=== PATIENT | female | born 1940 | race Caucasian/White ===

== ENCOUNTER 2020-09-28 14:40 | Outpatient (REF) | payer MEDICARE, OTHER, SELFPAY ==
--- NOTE | 2020-09-28 | XR_ITS ---
EXAMINATION: XR LUMBAR SPINE XR RIGHT HIP CLINICAL INFORMATION: Low back pain and right hip pain. COMPARISON: Right hip 06/12/2020. TECHNIQUE: 5 views of lumbar spine and 2 views of right hip. FINDINGS: LUMBAR SPINE: There is normal lumbar lordosis. The vertebral heights, alignment and disc heights are normal. There is no pars defect or listhesis. There is bilateral L4-L5 facet joint arthropathy. No lytic process. The paravertebral soft tissues are normal. RIGHT HIP: There is an intramedullary femoral kelle and a hip nail for an old healed right hip intertrochanteric fracture. XR/XR lumbar spine 4V min IMPRESSION: No acute fracture or dislocation of lumbar spine. There is bilateral L4-L5 facet joint arthropathy. No lytic process. Stabilized right hip fracture with an intramedullary femoral kelle and a hip nail. The fracture is in satisfactory alignment with healing callus visualized.
--- NOTE | 2020-09-28 | XR_ITS ---
EXAMINATION: XR LUMBAR SPINE XR RIGHT HIP CLINICAL INFORMATION: Low back pain and right hip pain. COMPARISON: Right hip 06/12/2020. TECHNIQUE: 5 views of lumbar spine and 2 views of right hip. FINDINGS: LUMBAR SPINE: There is normal lumbar lordosis. The vertebral heights, alignment and disc heights are normal. There is no pars defect or listhesis. There is bilateral L4-L5 facet joint arthropathy. No lytic process. The paravertebral soft tissues are normal. RIGHT HIP: There is an intramedullary femoral kelle and a hip nail for an old healed right hip intertrochanteric fracture. XR/XR hip RT min 2V IMPRESSION: No acute fracture or dislocation of lumbar spine. There is bilateral L4-L5 facet joint arthropathy. No lytic process. Stabilized right hip fracture with an intramedullary femoral kelle and a hip nail. The fracture is in satisfactory alignment with healing callus visualized.
--- NOTE | 2020-09-28 14:54 | US_ITS ---
EXAMINATION: US VENOUS ULTRASOUND WITH DOPPLER LOWER EXTREMITY, RIGHT CLINICAL INFORMATION: Right lower extremity edema. Hip pain. COMPARISON: Radiographs right hip 08/15/2020 TECHNIQUE: Ultrasound of the deep veins is performed from the hip to the calf with compression sonography and color and pulse Doppler assessment. Spectral analysis with color-flow imaging is performed. FINDINGS: There is normal venous compression and respiratory variation and augmented flow. The visualized common femoral vein, superficial femoral vein, profunda femoral vein, popliteal vein, and the trifurcation region shows no evidence of deep venous thrombosis. No popliteal fossa cyst demonstrated. US/US venous duplex LE RT IMPRESSION: No DVT demonstrated in the right lower extremity.
== END 2020-09-28 14:41 | disposition home or self-care (01) ==
LOC: HO.HMGCX 14:40
PROVIDERS: PCP Internal Medicine; Visit Provider Internal Medicine
DX: M79.89 Other specified soft tissue disorders (principal); M25.551 Pain in right hip; M54.5 Low back pain; S42.211D Unspecified displaced fracture of surgical neck of right humerus, subsequent encounter for fracture with routine healing
CPT/HCPCS: 72110; 73502; 93971

== ENCOUNTER → 2020-10-10 13:04 | Outpatient (BNVA) | payer MEDICARE, OTHER, SELFPAY | PROVIDERS: PCP Internal Medicine; Referring Provider Internal Medicine; Visit Provider Orthopaedic Surgery | DX: M25.551 Pain in right hip (principal); M53.3 Sacrococcygeal disorders, not elsewhere classified; S72.141S Displaced intertrochanteric fracture of right femur, sequela | CPT/HCPCS: 99212 ==

== ENCOUNTER → 2021-01-09 11:19 | Outpatient (BNVA) | payer MEDICARE, MEDICAID, OTHER, SELFPAY | PROVIDERS: PCP Internal Medicine; Visit Provider Nurse Practitioner Family | DX: I25.10 Atherosclerotic heart disease of native coronary artery without angina pectoris (principal); I25.5 Ischemic cardiomyopathy; I50.20 Unspecified systolic (congestive) heart failure; Z98.890 Other specified postprocedural states; E78.5 Hyperlipidemia, unspecified; I10 Essential (primary) hypertension; E11.9 Type 2 diabetes mellitus without complications | CPT/HCPCS: Q3014 ==

== ENCOUNTER → 2021-02-15 14:05 | Outpatient (REF) | payer MEDICARE, OTHER, SELFPAY ==
--- NOTE | 2021-02-15 14:04 | CA_ITS ---
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 Moderate to severe LV systolic dysfunction with LVEF of 30 35% with impaired relaxation filling pattern 2. Normal cardiac valvular Doppler 3. Normal RV systolic pressure 4. No pericardial effusion Findings Left Ventricle Normal left ventricular cavity size. There is normal left ventricular wall thickness. The left ventricular systolic function is moderate to severely decreased. The visually estimated ejection fraction is between 30-35%. Spectral Doppler is indicative of an impaired relaxation filling pattern. E/E prime ratio is between 8 and 15 consistent with indeterminate filling pressures. Wall Motion Rest Echo Findings The apex, apical anterior, mid anterior, and mid anteroseptal segments are hypokinetic. The inferoseptal wall, the mid inferior, and basal inferolateral segments are akinetic. The basal inferior segment is dyskinetic. All other scored wall segments showed normal motion. Right Ventricle Normal right ventricular cavity size and systolic function. Atria Both atria are normal in size. There is no evidence of interatrial shunt. Aortic Valve There is mild calcification of the aortic valve. There is no aortic valve stenosis. There is no aortic valve regurgitation. Mitral Valve There is mild anterior and posterior mitral leaflet thickening. There is trace mitral valve regurgitation. There is no mitral valve stenosis. Pulmonic Valve The pulmonic valve was not well visualized. Tricuspid Valve Likely normal tricuspid valve structure and function. There is trace tricuspid valve regurgitation. The right ventricular systolic pressure is normal. The right ventricular systolic pressure is 26 mmHg. Normal right atrial pressure. There is no evidence of pulmonary hypertension. Great Vessels All visible segments of the aorta are normal in size. The pulmonary artery was not well visualized. Venous The inferior vena cava is normal in size and collapses greater than 50% with inspiration. Pericardium/Pleural There is no evidence of pericardial effusion. Prior Study Comparison Changes noted compared to prior study dated: 10/08/2019. LV systolic function appears improved on this study Measurements 2D Linear Measurements IVSd: 1.10 0.6-0.9/0.6-1.0 cm LVIDd: 5.27 3.9-5.3/4.2-5.9 cm LVIDd Index: 2.96 2.4-3.2/2.2-3.1 cm/m2 LVIDs: 4.16 2.0-3.6 cm LVPWd: 1.10 0.7-1.1 cm Ao Root: 3.30 2.1-3.5 cm LA Diam: 3.40 2.7-3.8/3.0-4.0 cm LAIDs Index: 1.91 1.5-2.3 cm/m2 LV Mass: 281.29 67-162/88-224 g LV Mass Index: 158.03 43-95/49-115 g/m2 LVOT Diam: 2.20 3.0+(-)1.3 cm 2D Systolic Function EF 4C: 35.40 >55% EF 2C: 45.50 >55% Mitral Valve MV Pk E: 0.64 MV PK A: 1.00 MV Decel Time: 279.00 E/A: 0.60 E'Lateral: 7.94 E'Medial: 4.13 E/E' Med: 15.40 E/E' Lat: 8.00 PHT: 82.00 MVA PHT: 2.68 Decel Hood: 2.28 Aortic Valve AoV Pk Isidoro: 1.47 AoV Mn Isidoro: 1.03 AoV VTI: 0.36 AoV Pk Grad: 9.00 Aov Mn Grad: 5.00 JENN Cont.VTI: 1.93 LVOT LVOT Pk Isidoro: 0.79 LVOT Mn Isidoro: 0.50 LVOT VTI: 0.18 LVOT Pk Grad: 3.00 LVOT Mn Grad: 1.00 LVOT Diam: 2.20 LVOT Area: 3.80 Diastolic Function MV Pk E: 0.64 MV Pk A: 1.00 E/A: 0.60 E'Medial: 4.13 E/E' Med: 15.40 E' Laterial: 7.94 E/E' Lat: 8.00 Tricuspid Valve TR Pk Isidoro: 2.39 TR Pk Grad: 23.00 RA Press: 3.00 RVSP: 26.00 Great Vessels Aorta Ao Root-2D: 3.30 2.0-3.7 cm Ao Asc: 3.20 2.1-3.4 cm Ao Arch: 2.50 Updated in Other Vendor System with Status of Final Arron Snyder MD electronically signed on 02/16/2021 3:03:35 PM with status of Final
[2021-02-15 14:46] LABS: MANUAL DIFF FLAG NO
[2021-02-15 14:50] LABS: Basophils Percent Auto 0.5 % (0-2); Eosinophils Absolute Auto 0.2 X10*3/uL (0.0-0.4); Hematocrit 31.1 % (37-47); Hemoglobin 9.6 g/dl (12.0-16.0); Imm Gran Abs Auto 0.03 X10*3/uL (0.00-0.03); Imm Gran Pct Auto 0.5 % (0.0-0.4); Lymphocytes Percent Auto 34.8 % (20-40); Mean Corpuscular HGB Conc 30.9 g/dl (31.0-35.0); Mean Corpuscular Hemoglobin 31.9 pg (27.0-33.0); Mean Corpuscular Volume 103.3 fL (80-98); Mean Platelet Volume 10.1 fL (9.4-12.3); Monocytes Absolute Auto 0.4 X10*3/uL (0.1-1.2); Monocytes Percent Auto 6.3 % (2-11); Neutrophils Absolute Auto 3.1 X10*3/uL (2.0-8.3); Neutrophils Percent Auto 53.9 % (45-73); Platelet Count 265 X10*3/uL (160-400); Red Blood Count 3.01 X10*6/uL (4.20-5.50); Red Cell Distribution Width 13.4 % (11.0-16.0); White Blood Count 5.7 X10*3/uL (4.8-10.8)
[2021-02-15 15:20] LABS: Alanine Aminotransferase 16 U/L (0-31); Albumin Level 3.4 g/dL (3.5-5.0); Alkaline Phosphatase 105 U/L (39-117); Anion Gap 12 (12-20); Aspartate Amino Transferase 16 U/L (5-31); Bilirubin Total 0.4 mg/dL (0.0-1.0); Blood Urea Nitrogen 32 mg/dL (9-16); Calcium 8.7 mg/dL (8.4-10.2); Carbon Dioxide 25 mmol/L (22-29); Chloride 106 mmol/L (96-108); Cholesterol 139 mg/dL; Estimated Glomerular Filt Rate 39; Glucose Random 255 mg/dL (60-115); HDL Cholesterol 33 mg/dL; LDL Cholesterol Calculated 80 mg/dl; Potassium 5.5 mmol/L (3.3-5.1); Sodium 137 mmol/L (135-145); Total Protein 6.2 g/dL (6.5-8.0); Triglycerides 131 mg/dL
== END ==
LOC: HO.CARD 14:05
PROVIDERS: Visit Provider Nurse Practitioner Family
DX: I25.5 Ischemic cardiomyopathy (principal); I25.10 Atherosclerotic heart disease of native coronary artery without angina pectoris; I50.20 Unspecified systolic (congestive) heart failure; E78.5 Hyperlipidemia, unspecified; Z98.890 Other specified postprocedural states
CPT/HCPCS: 36415; 80053; 80061; 85025; 93306

== ENCOUNTER 2021-02-26 11:06 | Outpatient (REF) | payer MEDICARE, OTHER, SELFPAY ==
[2021-02-26 13:52] LABS: Anion Gap 13 (12-20); Blood Urea Nitrogen 26 mg/dL (9-16); Calcium 9.7 mg/dL (8.4-10.2); Carbon Dioxide 26 mmol/L (22-29); Chloride 103 mmol/L (96-108); Estimated Glomerular Filt Rate 39; Glucose Random 318 mg/dL (60-115); Potassium 5.8 mmol/L (3.3-5.1); Sodium 136 mmol/L (135-145)
== END 2021-02-26 11:07 | disposition home or self-care (01) ==
LOC: HO.LAB 11:06
PROVIDERS: PCP Internal Medicine; Visit Provider Nurse Practitioner Family
DX: I25.10 Atherosclerotic heart disease of native coronary artery without angina pectoris (principal); I11.0 Hypertensive heart disease with heart failure; I50.20 Unspecified systolic (congestive) heart failure; I25.5 Ischemic cardiomyopathy; E78.5 Hyperlipidemia, unspecified; E11.9 Type 2 diabetes mellitus without complications; Z98.890 Other specified postprocedural states; Z79.899 Other long term (current) drug therapy
CPT/HCPCS: 36415; 80048; 93005; 99212

== ENCOUNTER 2021-02-28 13:42 | Outpatient (REF) | payer MEDICARE, MEDICAID, OTHER, SELFPAY ==
[2021-02-28 14:52] LABS: Potassium 5.2 mmol/L (3.3-5.1)
== END 2021-02-28 13:43 | disposition home or self-care (01) ==
LOC: HO.LAB 13:42
PROVIDERS: PCP Internal Medicine; Visit Provider Nurse Practitioner Family
DX: E87.5 Hyperkalemia (principal)
CPT/HCPCS: 36415; 84132

== ENCOUNTER 2021-03-08 21:51 | Emergency (ER) | payer MEDICARE, MEDICAID, SELFPAY ==
--- NOTE | ~2021-03-08 | XR_ITS ---
EXAMINATION: XR CHEST CLINICAL INFORMATION: Pain and weakness COMPARISON: 06/11/2020 TECHNIQUE: Portable 7:33 AM view of the chest was obtained. FINDINGS: Evidence of previous cardiac surgery. Multiple leads overlie the chest. No significant abnormality is noted involving the heart, lungs, mediastinum, bony thorax or soft tissues. XR/XR chest 1V IMPRESSION: No active chest disease.
[2021-03-08 22:02] VITALS: BP 146/52; PULSE 80; RESP 18; TEMP 36.8; O2SAT 96
[2021-03-08 22:07] VITALS: BP 146/52; BP 147/61; PULSE 79; PULSE 84; RESP 16; TEMP 36.8; O2SAT 95; O2SAT 97; BMI 28.9
--- NOTE | 2021-03-08 22:23 | ECG_ITS ---
Test Reason : CHEST PAIN Blood Pressure : / mmHG Vent. Rate : 078 BPM Atrial Rate : 078 BPM P-R Int : 140 ms QRS Dur : 100 ms QT Int : 406 ms P-R-T Axes : 053 -20 132 degrees QTc Int : 462 ms Normal sinus rhythm Inferior-posterior infarct (cited on or before 20-JUL-2018) ST & T wave abnormality, consider lateral ischemia Abnormal ECG When compared with ECG of 10-JUN-2020 21:25, Premature ventricular complexes are no longer Present T wave inversion more evident in Lateral leads Referred By: Magdalena Gaspar Electronically Signed By:HUSSEIN MARIN
[2021-03-08 22:32] LABS: MANUAL DIFF FLAG NO
[2021-03-08 22:36] LABS: Basophils Percent Auto 0.1 % (0-2); Eosinophils Absolute Auto 0.3 X10*3/uL (0.0-0.4); Eosinophils Percent Auto 3.7 % (0-4); Hematocrit 28.4 % (37-47); Hemoglobin 9.3 g/dl (12.0-16.0); Imm Gran Abs Auto 0.05 X10*3/uL (0.00-0.03); Imm Gran Pct Auto 0.7 % (0.0-0.4); Lymphocytes Absolute Auto 1.6 X10*3/uL (1.2-4.9); Lymphocytes Percent Auto 23.6 % (20-40); Mean Corpuscular HGB Conc 32.7 g/dl (31.0-35.0); Mean Corpuscular Hemoglobin 32.9 pg (27.0-33.0); Mean Corpuscular Volume 100.4 fL (80-98); Mean Platelet Volume 9.9 fL (9.4-12.3); Monocytes Absolute Auto 0.4 X10*3/uL (0.1-1.2); Monocytes Percent Auto 6.1 % (2-11); Neutrophils Absolute Auto 4.6 X10*3/uL (2.0-8.3); Neutrophils Percent Auto 65.8 % (45-73); Platelet Count 211 X10*3/uL (160-400); Red Blood Count 2.83 X10*6/uL (4.20-5.50); Red Cell Distribution Width 12.9 % (11.0-16.0); White Blood Count 6.9 X10*3/uL (4.8-10.8)
[2021-03-08 22:52] LABS: INTERNATIONAL NORM RATIO 0.9 (0.9-1.1); Prothrombin Time 11.1 SEC (10.8-13.0)
[2021-03-08 23:06] LABS: B Type Natriuretic Peptide 184 pg/mL (<100)
[2021-03-08 23:09] LABS: Troponin-I High Sensitivity 8.2 ng/L (<3.5-17.0)
--- NOTE | 2021-03-08 23:20 | ED.WEAKNESS ---
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 Patient states that 2 days ago she had 2 episodes of chest pain that she describes as pressure/tightness, nonradiating. Both time she took a sublingual nitro with complete resolution of her symptoms. In addition patient describes that she had slurred speech and complained of increased weakness and pain in the right lower extremity, and on further questioning states that she also had similar symptoms on the left lower extremity. The daughter who is at bedside stated that thing that raise concerns for her was that she notes that her mom was recently started on trazodone and she felt like her mother had slurred speech when she spoke with her on the phone earlier today and further endorses that she noticed a waxing and waning of confusion. Otherwise, patient denies any diarrhea, abdominal pain, urinary pain/burning/frequency, development of cough. She has had both COVID-19 vaccines. Related Data Home Medications Medication Instructions Recorded Confirmed acetaminophen-codeine 1 tab PO Q8H PRN 03/09/21 03/09/21 albuterol sulfate 2 puff INHALATION Q4H PRN 03/09/21 03/09/21 albuterol sulfate [Ventolin HFA] 1 puff INHALATION BEDTIME 03/09/21 03/09/21 ascorbic acid (vitamin C) [Vitamin 1 tab PO QAM 03/09/21 03/09/21 C] aspirin 1 tab PO DAILY 03/09/21 03/09/21 atorvastatin 1 tab PO DAILY 03/09/21 03/09/21 clopidogrel 1 tab PO QAM 03/09/21 03/09/21 cyanocobalamin (vitamin B-12) 1 tab PO QAM 03/09/21 03/09/21 [Vitamin B-12] duloxetine 1 cap PO BID 03/09/21 03/09/21 ferrous sulfate 1 tab PO QAM 03/09/21 03/09/21 folic acid 1 tab PO QAM 03/09/21 03/09/21 furosemide 1 tab PO QAM 03/09/21 03/09/21 gabapentin 1 cap PO TID 03/09/21 03/09/21 hydralazine 25 mg PO BID 03/09/21 03/09/21 insulin detemir U-100 [Levemir 45 unit SUBCUT DAILY 03/09/21 03/09/21 FlexTouch U-100 Insuln] isosorbide mononitrate 1 tab PO DAILY 03/09/21 03/09/21 metoprolol succinate 1 tab PO DAILY 03/09/21 03/09/21 pantoprazole 1 tab PO QAM 03/09/21 03/09/21 quetiapine 1 tab PO BEDTIME 03/09/21 03/09/21 ranolazine 1 tab PO BID 03/09/21 03/09/21 trazodone 1 tab PO BEDTIME 03/09/21 03/09/21 Allergies Allergy/AdvReac Type Severity Reaction Status Date / Time naproxen [From ALEVE] Allergy Intermediate SWELLING Verified 03/09/21 05:46 VOMITING acetaminophen [Percocet] Allergy Unknown Unknown Verified 03/09/21 05:46 sacubitril [Entresto] Allergy Unknown Unknown Verified 03/09/21 05:46 valsartan [Entresto] Allergy Unknown Unknown Verified 03/09/21 05:46 oxycodone [From PERCOCET] AdvReac Intermediate VOMITING Verified 03/09/21 05:46 Review of Systems Review of Systems: Pertinent positives and negatives as stated in HPI 10 point review of systems is otherwise negative. [facility] Past Medical History Source: nursing notes reviewed Medical History CAD (coronary artery disease) Diabetes mellitus HFrEF (heart failure with reduced ejection fraction) HLD (hyperlipidemia) Hypertension Ischemic cardiomyopathy PVD (peripheral vascular disease) Surgical History S/P CABG x 3 S/P cardiac cath (~07/2017) Stented coronary artery Family History Family History Mother No problems noted. Father No problems noted. Social History Social History Advance Directives: No Current occupational status: disabled Current occupation: Right Handed Physical Exam Vital Signs: Vital Signs: Last Vital Signs Temp 98.3 F 03/09/21 06:00 Pulse 83 03/09/21 06:00 Resp 17 03/09/21 06:00 BP 142/86 H 03/09/21 06:00 Pulse Ox 96 03/09/21 06:00 Body Mass Index 28.9 VITAL SIGNS: Reviewed. GENERAL: Well developed, well nourished, in no acute distress. HEAD: Normocephalic/atraumatic EYES: PERRLA, EOMI NOSE: Nares patent bilateral OROPHARYNX: no oral lesions noted, posterior pharynx clear, tacky mucosa NECK: Supple, no adenopathy LUNGS: Normal breath sounds. No adventitious sounds or accessory muscle use. SpO2<95> CARDIOVASCULAR: Regular rate and rhythm without noted murmurs, no JVD or lower extremity edema. ABDOMEN: Soft, non-tender, non-distended with bowel sounds. NEUROLOGIC: Alert and oriented x 4. Strength and sensation to light touch were grossly intact x 4, no pronator drift, no facial asymmetry, no slurred speech noted. Course Course Course Narrative: This is a 80-year-old female with history and clinical presentation concerning for possible delirium versus medication reaction, but will rule out underlying infection/anemia/cardiopulmonary etiologies. Review of all investigations concerning for possible anginal symptoms, but otherwise lab work is chronically stable with the exception of a mild ZEB. Despite the ZEB BNP is improved on comparison to prior and no clinical evidence of CHF exacerbation. Serial troponins although flat given patient's reported history as well as feeling fatigued and weak are concerning for angina and possible cardiac etiology for feelings of weakness. This case was discussed with cardiology who will evaluate the patient this morning in the emergency department. Signed out to Dr Moreno pending evaluation by cardiology. Reevaluation(s) Reevaluation #1: Physician observation started at [0500]. Patient placed in physician observation because the patient needed more time for cardiology evaluation for possible admission. At the time observation was started the patient's vital signs were stable, patient is alert and oriented and chest pain-free, neuro: Nonfocal, CV RRR, lungs clear. MDM - Weakness Lab Data Result diagrams: 03/08/21 22:28 03/08/21 22:56 Labs: Lab Results 03/08/21 03/08/21 03/08/21 Range/Units 22:28 22:28 22:28 WBC 6.9 (4.8-10.8) X10*3/uL RBC 2.83 L (4.20-5.50) X10*6/uL Hgb 9.3 L (12.0-16.0) g/dl Hct 28.4 L (37-47) % MCV 100.4 H (80-98) fL MCH 32.9 (27.0-33.0) pg MCHC 32.7 (31.0-35.0) g/dl RDW 12.9 (11.0-16.0) % Plt Count 211 (160-400) X10*3/uL MPV 9.9 (9.4-12.3) fL Immature Gran % (Auto) 0.7 H (0.0-0.4) % Neut % (Auto) 65.8 (45-73) % Lymph % (Auto) 23.6 (20-40) % [place] % (Auto) 6.1 (2-11) % Eos % (Auto) 3.7 (0-4) % Baso % (Auto) 0.1 (0-2) % Lymph # (Auto) 1.6 (1.2-4.9) X10*3/uL [place] # (Auto) 0.4 (0.1-1.2) X10*3/uL Eos # (Auto) 0.3 (0.0-0.4) X10*3/uL Baso # (Auto) 0.0 (0.0-0.2) X10*3/uL Abs Immat Gran (auto) 0.05 H (0.00-0.03) X10*3/uL Absolute Neuts (auto) 4.6 (2.0-8.3) X10*3/uL Absolute Nucleated RBC 0.000 (0.0-0.012) X10*3/uL Nucleated RBC % (auto) 0.0 (0.0-0.2) /100WBC PT 11.1 (10.8-13.0) SEC INR 0.9 (0.9-1.1) Sodium (135-145) mmol/L Potassium (3.3-5.1) mmol/L Chloride (96-108) mmol/L Carbon Dioxide (22-29) mmol/L Anion Gap (12-20) BUN (9-16) mg/dL Creatinine (0.5-1.4) mg/dL Estim Creat Clear Calc Estimated GFR POC Glucose (60-115) mg/dL Random Glucose (60-115) mg/dL Calcium (8.4-10.2) mg/dL Total Bilirubin (0.0-1.0) mg/dL AST (5-31) U/L ALT (0-31) U/L Alkaline Phosphatase (39-117) U/L Troponin I High Sens 8.2 (<3.5-17.0) ng/L B-Natriuretic Peptide 184 H (<100) pg/mL Total Protein (6.5-8.0) g/dL Albumin (3.5-5.0) g/dL Urine Color Urine Appearance Urine pH (5.0-8.0) Ur Specific [place] (1.005-1.025) Urine Protein (NEG-TRACE) MG/DL Urine Glucose (UA) (NEG) MG/DL Urine Ketones (NEG) MG/DL Urine Blood (NEG) Urine Nitrite (NEG) Ur Leukocyte Esterase (NEG) Urine RBC (0) /HPF Urine WBC (0-4) /HPF Ur Squamous Epith Cells /LPF Ur Renal Epithelial Cell /LPF Urine Bacteria /LPF COVID-19 (ISAMEL) (Negative) COVID-19 Clin Com 03/08/21 03/09/21 03/09/21 Range/Units 22:56 00:07 01:04 WBC (4.8-10.8) X10*3/uL RBC (4.20-5.50) X10*6/uL Hgb (12.0-16.0) g/dl Hct (37-47) % MCV (80-98) fL MCH (27.0-33.0) pg MCHC (31.0-35.0) g/dl RDW (11.0-16.0) % Plt Count (160-400) X10*3/uL MPV (9.4-12.3) fL Immature Gran % (Auto) (0.0-0.4) % Neut % (Auto) (45-73) % Lymph % (Auto) (20-40) % [place] % (Auto) (2-11) % Eos % (Auto) (0-4) % Baso % (Auto) (0-2) % Lymph # (Auto) (1.2-4.9) X10*3/uL [place] # (Auto) (0.1-1.2) X10*3/uL Eos # (Auto) (0.0-0.4) X10*3/uL Baso # (Auto) (0.0-0.2) X10*3/uL Abs Immat Gran (auto) (0.00-0.03) X10*3/uL Absolute Neuts (auto) (2.0-8.3) X10*3/uL Absolute Nucleated RBC (0.0-0.012) X10*3/uL Nucleated RBC % (auto) (0.0-0.2) /100WBC PT (10.8-13.0) SEC INR (0.9-1.1) Sodium 134 L (135-145) mmol/L Potassium 5.4 H (3.3-5.1) mmol/L Chloride 103 (96-108) mmol/L Carbon Dioxide 25 (22-29) mmol/L Anion Gap 11 L (12-20) BUN 47 H D (9-16) mg/dL Creatinine 1.88 H (0.5-1.4) mg/dL Estim Creat Clear Calc 24.2 Estimated GFR 26 POC Glucose 399 H* (60-115) mg/dL Random Glucose 449 H* (60-115) mg/dL Calcium 8.3 L D (8.4-10.2) mg/dL Total Bilirubin 0.2 (0.0-1.0) mg/dL AST 10 (5-31) U/L ALT 18 (0-31) U/L Alkaline Phosphatase 92 (39-117) U/L Troponin I High Sens (<3.5-17.0) ng/L B-Natriuretic Peptide (<100) pg/mL Total Protein 6.0 L (6.5-8.0) g/dL Albumin 3.3 L (3.5-5.0) g/dL Urine Color YELLOW Urine Appearance CLEAR Urine pH 6.0 (5.0-8.0) Ur Specific [place] 1.015 (1.005-1.025) Urine Protein NEG (NEG-TRACE) MG/DL Urine Glucose (UA) >=1000 H (NEG) MG/DL Urine Ketones NEG (NEG) MG/DL Urine Blood NEG (NEG) Urine Nitrite NEG (NEG) Ur Leukocyte Esterase NEG (NEG) Urine RBC 0-2 (0) /HPF Urine WBC 5-9 H (0-4) /HPF Ur Squamous Epith Cells 2+ /LPF Ur Renal Epithelial Cell TRACE /LPF Urine Bacteria 1+ /LPF COVID-19 (ISMA[facility]) (Negative) COVID-19 Clin Com 03/09/21 03/09/21 03/09/21 Range/Units 01:14 04:14 04:19 WBC (4.8-10.8) X10*3/uL RBC (4.20-5.50) X10*6/uL Hgb (12.0-16.0) g/dl Hct (37-47) % MCV (80-98) fL MCH (27.0-33.0) pg MCHC (31.0-35.0) g/dl RDW (11.0-16.0) % Plt Count (160-400) X10*3/uL MPV (9.4-12.3) fL Immature Gran % (Auto) (0.0-0.4) % Neut % (Auto) (45-73) % Lymph % (Auto) (20-40) % [place] % (Auto) (2-11) % Eos % (Auto) (0-4) % Baso % (Auto) (0-2) % Lymph # (Auto) (1.2-4.9) X10*3/uL [place] # (Auto) (0.1-1.2) X10*3/uL Eos # (Auto) (0.0-0.4) X10*3/uL Baso # (Auto) (0.0-0.2) X10*3/uL Abs Immat Gran (auto) (0.00-0.03) X10*3/uL Absolute Neuts (auto) (2.0-8.3) X10*3/uL Absolute Nucleated RBC (0.0-0.012) X10*3/uL Nucleated RBC % (auto) (0.0-0.2) /100WBC PT (10.8-13.0) SEC INR (0.9-1.1) Sodium (135-145) mmol/L Potassium (3.3-5.1) mmol/L Chloride (96-108) mmol/L Carbon Dioxide (22-29) mmol/L Anion Gap (12-20) BUN (9-16) mg/dL Creatinine (0.5-1.4) mg/dL Estim Creat Clear Calc Estimated GFR POC Glucose 347 H (60-115) mg/dL Random Glucose (60-115) mg/dL Calcium (8.4-10.2) mg/dL Total Bilirubin (0.0-1.0) mg/dL AST (5-31) U/L ALT (0-31) U/L Alkaline Phosphatase (39-117) U/L Troponin I High Sens 8.7 (<3.5-17.0) ng/L B-Natriuretic Peptide (<100) pg/mL Total Protein (6.5-8.0) g/dL Albumin (3.5-5.0) g/dL Urine Color Urine Appearance Urine pH (5.0-8.0) Ur Specific [place] (1.005-1.025) Urine Protein (NEG-TRACE) MG/DL Urine Glucose (UA) (NEG) MG/DL Urine Ketones (NEG) MG/DL Urine Blood (NEG) Urine Nitrite (NEG) Ur Leukocyte Esterase (NEG) Urine RBC (0) /HPF Urine WBC (0-4) /HPF Ur Squamous Epith Cells /LPF Ur Renal Epithelial Cell /LPF Urine Bacteria /LPF COVID-19 (ISMAEL) Negative (Negative) COVID-19 Clin Com See Note ECG Data Attestation: I personally reviewed and interpreted this ECG as follows: Prior ECG tracings: available for review (06/10/2020 ) Interpretation: Normal sinus rhythm, HR-78, no ST elevations, MA/QRS/QTC are within normal limits. Q-waves noted in inferior distribution are consistent findings with comparison EKG from 06/10. Discharge Plan Discharge Prescriptions: No Action atorvastatin 80 mg tablet 1 tab PO DAILY RF: 0 acetaminophen-codeine 300-30 mg tablet 1 tab PO Q8H PRN (Reason: pain) RF: 0 clopidogrel 75 mg tablet 1 tab PO QAM RF: 0 aspirin 81 mg tablet,delayed release (DR/EC) 1 tab PO DAILY RF: 0 albuterol sulfate 90 mcg/actuation HFA aerosol inhaler 2 puff inhalation Q4H PRN (Reason: Dyspnea) RF: 0 metoprolol succinate 50 mg tablet extended release 24 hr 1 tab PO DAILY RF: 0 hydralazine 25 mg tablet 25 mg PO BID RF: 0 cyanocobalamin (vitamin B-12) [Vitamin B-12] 250 mcg tablet 1 tab PO QAM RF: 0 quetiapine 100 mg tablet 1 tab PO BEDTIME RF: 0 isosorbide mononitrate 120 mg tablet extended release 24 hr 1 tab PO DAILY RF: 0 ascorbic acid (vitamin C) [Vitamin C] 500 mg tablet 1 tab PO QAM RF: 0 pantoprazole 40 mg tablet,delayed release (DR/EC) 1 tab PO QAM RF: 0 trazodone 150 mg tablet 1 tab PO BEDTIME RF: 0 ferrous sulfate 325 mg (65 mg iron) tablet 1 tab PO QAM RF: 0 folic acid 1 mg tablet 1 tab PO QAM RF: 0 furosemide 20 mg tablet 1 tab PO QAM RF: 0 gabapentin 100 mg capsule 1 cap PO TID RF: 0 albuterol sulfate [Ventolin HFA] 90 mcg/actuation HFA aerosol inhaler 1 puff inhalation BEDTIME RF: 0 duloxetine 20 mg capsule,delayed release(DR/EC) 1 cap PO BID RF: 0 ranolazine 500 mg tablet extended release 12 hr 1 tab PO BID RF: 0 Levemir FlexTouch U-100 Insuln 100 unit/mL (3 mL) insulin pen 45 unit subcut DAILY RF: 0
[2021-03-08 23:43] LABS: Alanine Aminotransferase 18 U/L (0-31); Albumin Level 3.3 g/dL (3.5-5.0); Alkaline Phosphatase 92 U/L (39-117); Anion Gap 11 (12-20); Aspartate Amino Transferase 10 U/L (5-31); Bilirubin Total 0.2 mg/dL (0.0-1.0); Blood Urea Nitrogen 47 mg/dL (9-16); Calcium 8.3 mg/dL (8.4-10.2); Carbon Dioxide 25 mmol/L (22-29); Chloride 103 mmol/L (96-108); Creatinine Clr Calc Pharmacy 24.2; Estimated Glomerular Filt Rate 26; Glucose Random 449 mg/dL (60-115); Potassium 5.4 mmol/L (3.3-5.1); Sodium 134 mmol/L (135-145)
[2021-03-09 00:14] LABS: Glucose Urine UA >=1000 MG/DL (NEG); Leukocyte Esterase Urine NEG (NEG); Nitrite Urine NEG (NEG); Specific Gravity - Urine 1.015 (1.005-1.025); Urine Blood NEG (NEG); Urine Ketones NEG (NEG); Urine Protein NEG (NEG-TRACE)
[2021-03-09 00:20] LABS: Appearance Urine CLEAR; Color Urine YELLOW
[2021-03-09 00:26] LABS: Bacteria Urine 1+ /LPF; RBC Urine 0-2 /HPF (0); Renal Epithelial Cells Urine TRACE /LPF; Squamous Epithelial Cell Urine 2+ /LPF
[2021-03-09 00:52] VITALS: BP 119/55; PULSE 80; RESP 22; TEMP 36.9; O2SAT 99
[2021-03-09 01:17] LABS: Glucose, Whole Blood 399 mg/dL (60-115)
[2021-03-09] MEDS: 0.9 % Sodium Chloride 500 ML 999 ML IV (01:34)
[2021-03-09 02:05] LABS: Troponin-I High Sensitivity 8.7 ng/L (<3.5-17.0)
[2021-03-09 04:00] VITALS: BP 141/59; PULSE 83; RESP 16; TEMP 36.8; O2SAT 97
--- NOTE | 2021-03-09 04:15 | PC.NURSE ---
MD SIMONS AND RN RAFA AWARE OF PATIENT BLOOD SUGAR OF 347
[2021-03-09 04:22] LABS: Glucose, Whole Blood 347 mg/dL (60-115)
[2021-03-09 04:45] LABS: COVID-19 Test Negative (Negative); IDNOW Serial# 9DD0AD1C
[2021-03-09 06:00] VITALS: BP 142/86; PULSE 81; PULSE 83; RESP 17; RESP 18; TEMP 36.8; O2SAT 96
[2021-03-09 07:37] VITALS: BP 160/73; PULSE 86; RESP 18
[2021-03-09 07:53] LABS: Glucose, Whole Blood 397 mg/dL (60-115)
[2021-03-09 09:26] VITALS: BP 160/73; PULSE 84
[2021-03-09] MEDS: Isosorbide Mononitrate 60 MG TAB.ER.24H 120 MG PO (09:26)
[2021-03-09 09:27] VITALS: BP 160/73
[2021-03-09] MEDS: Omeprazole 20 MG CAPSULE.DR PO (09:27)
[2021-03-09] MEDS: hydrALAZINE HCl 25 MG TABLET PO (09:27)
[2021-03-09] MEDS: Aspirin Enteric Coated 81 MG TABLET.DR PO (09:27)
[2021-03-09] MEDS: Folic Acid 1 MG TABLET PO (09:27)
[2021-03-09] MEDS: Cyanocobalamin (Vitamin B-12) 500 MCG TABLET 250 MCG PO (09:27)
[2021-03-09] MEDS: Ascorbic Acid 500 MG TABLET PO (09:27)
[2021-03-09] MEDS: Gabapentin 100 MG CAPSULE PO (09:28)
[2021-03-09] MEDS: Ferrous Sulfate 324 MG TABLET.DR PO (09:28)
[2021-03-09] MEDS: Clopidogrel Bisulfate 75 MG TABLET PO (09:28)
[2021-03-09] MEDS: Insulin Glargine,Hum.rec.anlog 100 UNIT/ML 10 ML VIAL 31 UNIT SUBCUT (09:28)
[2021-03-09] MEDS: DULoxetine HCl 20 MG CAPSULE.DR PO (09:28)
[2021-03-09] MEDS: Furosemide 20 MG TABLET PO (09:28)
--- NOTE | 2021-03-09 10:01 | PM.CNCAR ---
History of Present Illness History of Present Illness Date of Service: 03/09/21 Consult reason: chest pain Chief complaint: ?UTI Narrative: This is a cardiology consultation regarding chest pain. Patient is actually in the ER for generalized weakness. Patient has a history of coronary disease and prior coronary artery bypass surgery and she also has ischemic cardiomyopathy. She had a hip fracture last year and hence her mobility has been affected since that time. She has some chest discomfort every now and then and the last few weeks she has had 2 episodes according to her. Can happen somewhat randomly. Possibly anginal in nature. Currently she is completely pain free and states that she feels okay from cardiac. We have been asked to comment on her chest pain episodes. Review of Systems Review of Systems: Yes all other systems are reviewed and are negative Cardiovascular: Cardiovascular: Reports as per HPI, Reports no additional cardiovascular complaints, Denies acrocyanosis, Denies cool extremities, Denies painful fingertips, Reports chest pain, Reports chest pain at rest, Denies diaphoresis, Denies syncope, Denies irregular heart rhythm, Denies claudication, Denies leg edema, Denies lightheadedness, Denies palpitations and Denies dyspnea Respiratory: Respiratory: Denies dyspnea Neurologic: Denies syncope Endocrine: Endocrine: Denies palpitations PMFSH Past Medical History Medical History (Updated 03/09/21 @ 10:19 by Ricardo Petersen MD) CAD (coronary artery disease) Diabetes mellitus Essential hypertension HFrEF (heart failure with reduced ejection fraction) HLD (hyperlipidemia) Hypertension Ischemic cardiomyopathy PVD (peripheral vascular disease) Family History Family History Mother No problems noted. Father No problems noted. 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 Allergies Allergy/AdvReac Type Severity Reaction Status Date / Time naproxen [From ALEVE] Allergy Intermediate SWELLING Verified 03/09/21 05:46 VOMITING acetaminophen [Percocet] Allergy Unknown Unknown Verified 03/09/21 05:46 sacubitril [Entresto] Allergy Unknown Unknown Verified 03/09/21 05:46 valsartan [Entresto] Allergy Unknown Unknown Verified 03/09/21 05:46 oxycodone [From PERCOCET] AdvReac Intermediate VOMITING Verified 03/09/21 05:46 Active Medications: Current Medications Generic Name Dose Route Start Last Admin Trade Name Freq PRN Reason Stop Dose Admin Acetaminophen/Codeine Phosphate 1 tab 03/09/21 07:45 Acetaminophen With Codeine # 3 Tablet PO Q8H PRN pain Albuterol Sulfate 2 puff 03/09/21 07:45 Albuterol Sulfate 90 Mcg 8 Gm Inhaler INHALE Q4H PRN Dyspnea Albuterol Sulfate 1 puff 03/09/21 21:00 Albuterol Sulfate 90 Mcg 8 Gm Inhaler INHALE BEDTIME [facility] Ascorbic Acid 500 mg 03/09/21 09:00 03/09/21 09:27 Ascorbic Acid 500 Mg Tablet PO 500 mg DAILY [facility] Administration Aspirin 81 mg 03/09/21 09:00 03/09/21 09:27 Aspirin Enteric Coated 81 Mg Tablet. PO 81 mg DAILY [facility] Administration Atorvastatin Calcium 80 mg 03/09/21 21:00 Atorvastatin Calcium 80 Mg Tablet PO BEDTIME [facility] Clopidogrel Bisulfate 75 mg 03/09/21 09:00 03/09/21 09:28 Clopidogrel Bisulfate 75 Mg Tablet PO 75 mg DAILY [facility] Administration Cyanocobalamin 250 mcg 03/09/21 09:00 03/09/21 09:27 Cyanocobalamin (Vitamin B-12) 500 Mcg Tablet PO 250 mcg DAILY [facility] Administration Duloxetine HCl 20 mg 03/09/21 09:00 03/09/21 09:28 Duloxetine Hcl 20 Mg Capsule. PO 20 mg BID [facility] Administration Ferrous Sulfate 324 mg 03/09/21 09:00 03/09/21 09:28 Ferrous Sulfate 324 Mg Tablet. PO 324 mg DAILY [facility] Administration Folic Acid 1 mg 03/09/21 09:00 03/09/21 09:27 Folic Acid 1 Mg Tablet PO 1 mg DAILY [facility] Administration Furosemide 20 mg 03/09/21 09:00 03/09/21 09:28 Furosemide 20 Mg Tablet PO 20 mg DAILY [facility] Administration Protocol Gabapentin 100 mg 03/09/21 09:00 03/09/21 09:28 Gabapentin 100 Mg Capsule PO 100 mg TID [facility] Administration Hydralazine HCl 25 mg 03/09/21 09:00 03/09/21 09:27 Hydralazine Hcl 25 Mg Tablet PO 25 mg BID [facility] Administration Protocol Insulin Glargine 31 unit 03/09/21 09:00 03/09/21 09:28 Insulin Glargine,Hum.Rec.Anlog 100 Unit/Ml 10 Ml Vial SUBCUT 31 unit DAILY [facility] Administration Isosorbide Mononitrate 120 mg 03/09/21 09:00 03/09/21 09:26 Isosorbide Mononitrate 60 Mg Tab.Er.24h PO 120 mg DAILY [facility] Administration Protocol Metoprolol Succinate 50 mg 03/09/21 09:00 Metoprolol Succinate Er 50 Mg Tab.Er.24h PO DAILY [facility] Protocol Omeprazole 20 mg 03/09/21 08:23 03/09/21 09:27 Omeprazole 20 Mg Capsule.Dr PO 20 mg DAILY@0630 [facility] Administration Quetiapine Fumarate 100 mg 03/09/21 21:00 Quetiapine Fumarate 100 Mg Tablet PO BEDTIME [facility] Ranolazine 500 mg 03/09/21 09:00 Ranolazine 500 Mg Tab.Er.12h PO BID [facility] Home Medications Medication Instructions Recorded Confirmed Last Taken Type acetaminophen-codeine 1 tab PO Q8H PRN 03/09/21 03/09/21 03/08/21 History albuterol sulfate 2 puff INHALATION Q4H PRN 03/09/21 03/09/21 03/08/21 History albuterol sulfate [Ventolin HFA] 1 puff INHALATION BEDTIME 03/09/21 03/09/21 03/08/21 History ascorbic acid (vitamin C) [Vitamin 1 tab PO QAM 03/09/21 03/09/21 03/08/21 History C] aspirin 1 tab PO DAILY 03/09/21 03/09/21 03/08/21 History atorvastatin 1 tab PO DAILY 03/09/21 03/09/21 03/08/21 History clopidogrel 1 tab PO QAM 03/09/21 03/09/21 03/08/21 History cyanocobalamin (vitamin B-12) 1 tab PO QAM 03/09/21 03/09/21 03/08/21 History [Vitamin B-12] duloxetine 1 cap PO BID 03/09/21 03/09/21 03/08/21 History ferrous sulfate 1 tab PO QAM 03/09/21 03/09/21 03/08/21 History folic acid 1 tab PO QAM 03/09/21 03/09/21 03/08/21 History furosemide 1 tab PO QAM 03/09/21 03/09/21 03/08/21 History gabapentin 1 cap PO TID 03/09/21 03/09/21 03/08/21 History hydralazine 25 mg PO BID 03/09/21 03/09/21 03/08/21 History insulin detemir U-100 [Levemir 45 unit SUBCUT DAILY 03/09/21 03/09/21 03/08/21 History FlexTouch U-100 Insuln] isosorbide mononitrate 1 tab PO DAILY 03/09/21 03/09/21 03/08/21 History metoprolol succinate 1 tab PO DAILY 03/09/21 03/09/21 03/08/21 History pantoprazole 1 tab PO QAM 03/09/21 03/09/21 03/08/21 History quetiapine 1 tab PO BEDTIME 03/09/21 03/09/21 03/07/21 History ranolazine 1 tab PO BID 03/09/21 03/09/21 03/08/21 History trazodone 1 tab PO BEDTIME 03/09/21 03/09/21 03/07/21 History Physical Exam Vital Signs: Vital Signs: Last Vital Signs Temp 98.3 F 03/09/21 06:00 Pulse 84 03/09/21 09:26 Resp 18 03/09/21 07:37 BP 160/73 H 03/09/21 09:27 Pulse Ox 96 03/09/21 06:00 Body Mass Index 28.9 Const: General: cooperative, comfortable and no acute distress Orientation/consciousness: patient oriented x3 HENMT: Other: Unremarkable Neck: Neck: Yes normal visual inspection Chest: Chest palpation & inspection: normal inspection of the chest Resp: Auscultation: clear to auscultation bilaterally, no crackles and no wheezes Cardio: Jugular venous distension: no JVD Palpation: normal PMI Heart sounds: S1 normal heart sound present, S2 normal heart sound present, no gallops, no murmurs and no rubs GI: Palpation (GI): Soft to palpation Back/Spine/Pelvis: Other: unremarkable Skin: General skin exam: no rashes or lesions noted Neuro: General: patient oriented x3 Extrem: General: Yes no clubbing, cyanosis or edema Psych: Mental Status: mental status grossly normal Results Labs and Meds Result diagrams: 03/08/21 22:28 03/08/21 22:56 Lab results: Laboratory Results - last 24 hr 03/08/21 03/08/21 03/08/21 22:28 22:28 22:28 WBC 6.9 RBC 2.83 L Hgb 9.3 L Hct 28.4 L MCV 100.4 H MCH 32.9 MCHC 32.7 RDW 12.9 Plt Count 211 MPV 9.9 Immature Gran % (Auto) 0.7 H Neut % (Auto) 65.8 Lymph % (Auto) 23.6 Webb % (Auto) 6.1 Eos % (Auto) 3.7 Baso % (Auto) 0.1 Lymph # (Auto) 1.6 Webb # (Auto) 0.4 Eos # (Auto) 0.3 Baso # (Auto) 0.0 Abs Immat Gran (auto) 0.05 H Absolute Neuts (auto) 4.6 Absolute Nucleated RBC 0.000 Nucleated RBC % (auto) 0.0 PT 11.1 INR 0.9 Sodium Potassium Chloride Carbon Dioxide Anion Gap BUN Creatinine Estim Creat Clear Calc Estimated GFR POC Glucose Random Glucose Calcium Total Bilirubin AST ALT Alkaline Phosphatase Troponin I High Sens 8.2 B-Natriuretic Peptide 184 H Total Protein Albumin Urine Color Urine Appearance Urine pH Ur Specific [employer] [place] Urine Protein Urine Glucose (UA) Urine Ketones Urine Blood Urine Nitrite Ur Leukocyte Esterase Urine RBC Urine WBC Ur Squamous Epith Cells Ur Renal Epithelial Cell Urine Bacteria COVID-19 ([facility]MA[facility]) COVID-19 Clin Com 03/08/21 03/09/21 03/09/21 22:56 00:07 01:04 WBC RBC Hgb Hct MCV MCH MCHC RDW Plt Count MPV Immature Gran % (Auto) Neut % (Auto) Lymph % (Auto) Webb % (Auto) Eos % (Auto) Baso % (Auto) Lymph # (Auto) Webb # (Auto) Eos # (Auto) Baso # (Auto) Abs Immat Gran (auto) Absolute Neuts (auto) Absolute Nucleated RBC Nucleated RBC % (auto) PT INR Sodium 134 L Potassium 5.4 H Chloride 103 Carbon Dioxide 25 Anion Gap 11 L BUN 47 H D Creatinine 1.88 H Estim Creat Clear Calc 24.2 Estimated GFR 26 POC Glucose 399 H* Random Glucose 449 H* Calcium 8.3 L D Total Bilirubin 0.2 AST 10 ALT 18 Alkaline Phosphatase 92 Troponin I High Sens B-Natriuretic Peptide Total Protein 6.0 L Albumin 3.3 L Urine Color YELLOW Urine Appearance CLEAR Urine pH 6.0 Ur Specific [place] 1.015 Urine Protein NEG Urine Glucose (UA) >=1000 H Urine Ketones NEG Urine Blood NEG Urine Nitrite NEG Ur Leukocyte Esterase NEG Urine RBC 0-2 Urine WBC 5-9 H Ur Squamous Epith Cells 2+ Ur Renal Epithelial Cell TRACE Urine Bacteria 1+ COVID-19 ([facility]MA[facility]) COVID-19 Clin Com 03/09/21 03/09/21 03/09/21 01:14 04:14 04:19 WBC RBC Hgb Hct MCV MCH MCHC RDW Plt Count MPV Immature Gran % (Auto) Neut % (Auto) Lymph % (Auto) [place] % (Auto) Eos % (Auto) Baso % (Auto) Lymph # (Auto) Webb # (Auto) Eos # (Auto) Baso # (Auto) Abs Immat Gran (auto) Absolute Neuts (auto) Absolute Nucleated RBC Nucleated RBC % (auto) PT INR Sodium Potassium Chloride Carbon Dioxide Anion Gap BUN Creatinine Estim Creat Clear Calc Estimated GFR POC Glucose 347 H Random Glucose Calcium Total Bilirubin AST ALT Alkaline Phosphatase Troponin I High Sens 8.7 B-Natriuretic Peptide Total Protein Albumin Urine Color Urine Appearance Urine pH Ur Specific [employer] [place] Urine Protein Urine Glucose (UA) Urine Ketones Urine Blood Urine Nitrite Ur Leukocyte Esterase Urine RBC Urine WBC Ur Squamous Epith Cells Ur Renal Epithelial Cell Urine Bacteria COVID-19 (ISMAEL) Negative COVID-19 Clin Com See Note 03/09/21 07:50 WBC RBC Hgb Hct MCV MCH MCHC RDW Plt Count MPV Immature Gran % (Auto) Neut % (Auto) Lymph % (Auto) [place] % (Auto) Eos % (Auto) Baso % (Auto) Lymph # (Auto) Webb # (Auto) Eos # (Auto) Baso # (Auto) Abs Immat Gran (auto) Absolute Neuts (auto) Absolute Nucleated RBC Nucleated RBC % (auto) PT INR Sodium Potassium Chloride Carbon Dioxide Anion Gap BUN Creatinine Estim Creat Clear Calc Estimated GFR POC Glucose 397 H* Random Glucose Calcium Total Bilirubin AST ALT Alkaline Phosphatase Troponin I High Sens B-Natriuretic Peptide Total Protein Albumin Urine Color Urine Appearance Urine pH Ur Specific [employer] [place] Urine Protein Urine Glucose (UA) Urine Ketones Urine Blood Urine Nitrite Ur Leukocyte Esterase Urine RBC Urine WBC Ur Squamous Epith Cells Ur Renal Epithelial Cell Urine Bacteria COVID-19 (ISMA[facility]) COVID-19 Clin Com ECG Attestation: I personally reviewed and interpreted this ECG as follows: Interpretation: EKG from last night shows sinus rhythm at 78/Min; 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 Imaging Radiologist's impression: Impressions Chest X-Ray 03/09/21 07:19 IMPRESSION: No active chest disease. Assessment and Plan (1) Precordial chest pain: Status: Acute (2) Atherosclerotic cardiovascular disease: Status: Acute (3) Ischemic cardiomyopathy: Status: Acute (4) Status post coronary artery bypass graft: Status: Acute (5) Type 2 diabetes mellitus with unspecified complications: Status: Acute (6) Essential hypertension: Status: Acute Recent office notes reviewed. She has non revascularizable coronary disease. Manage medically. She also has diminished LVEF from ischemic cardiomyopathy. Coronary anatomy from 2017 reviewed. Her symptoms are possibly from stable angina and I do not see any signs of decompensation. Troponins are unremarkable. EKG has slightly more prominent T inversions in the lateral leads but otherwise no clear ACS type findings. Clinically, she is pain free. No need for any hospitalization at this time. She will need follow-up labs as an outpatient due to renal insufficiency. Entresto recently stopped. Blood pressure is on the higher side and will need to be further optimized as an outpatient. Cardiac catheterization-2016 Severe [place] three-vessel disease Patent VILLARREAL to distal LAD Severe stenosis of proximal segment of SVG graft to RPDA Occluded graft to circumflex Underwent PCI to distal RCA and proximal segment of SVG graft to RPDA. Echocardiogram-01/2021 Conclusions: 1. Moderate to severe LV systolic dysfunction with LVEF of 30 35% with impaired relaxation filling pattern 2. Normal cardiac valvular Doppler 3. Normal RV systolic pressure 4. No pericardial effusion
== END 2021-03-09 10:28 | disposition home or self-care (01) ==
PROVIDERS: Emergency Provider Student in an Organized Health Care Education/Training Program; PCP Internal Medicine
DX: R07.9 Chest pain, unspecified (principal); R53.1 Weakness; N39.0 Urinary tract infection, site not specified; E11.22 Type 2 diabetes mellitus with diabetic chronic kidney disease; I13.0 Hypertensive heart and chronic kidney disease with heart failure and stage 1 through stage 4 chronic kidney disease, or unspecified chronic kidney disease; N18.9 Chronic kidney disease, unspecified; I50.9 Heart failure, unspecified; Z20.822 Contact with and (suspected) exposure to COVID-19; E78.5 Hyperlipidemia, unspecified; Z95.1 Presence of aortocoronary bypass graft; Z79.82 Long term (current) use of aspirin; Z79.899 Other long term (current) drug therapy; Z79.02 Long term (current) use of antithrombotics/antiplatelets
CPT/HCPCS: 36415; 71045; 80053; 81001; 82947; 83880; 84484; 85025; 85610; 87086; 87635; 93005; 96360; 99284

== ENCOUNTER 2021-03-13 14:15 | Outpatient (REF) | payer MEDICARE, MEDICAID, OTHER, SELFPAY ==
[2021-03-13 15:27] LABS: B Type Natriuretic Peptide 337 pg/mL (<100)
[2021-03-13 15:51] LABS: Anion Gap 10 (12-20); Blood Urea Nitrogen 23 mg/dL (9-16); Calcium 8.6 mg/dL (8.4-10.2); Carbon Dioxide 24 mmol/L (22-29); Chloride 101 mmol/L (96-108); Estimated Glomerular Filt Rate 34; Potassium 5.3 mmol/L (3.3-5.1); Sodium 130 mmol/L (135-145)
[2021-03-13 16:29] LABS: Glucose Random 548 mg/dL (60-115)
== END 2021-03-13 14:16 | disposition home or self-care (01) ==
LOC: HO.LAB 14:15
PROVIDERS: PCP Internal Medicine; Visit Provider Nurse Practitioner Family
DX: E87.5 Hyperkalemia (principal); I11.0 Hypertensive heart disease with heart failure; I50.20 Unspecified systolic (congestive) heart failure; Z95.1 Presence of aortocoronary bypass graft
CPT/HCPCS: 36415; 80048; 83880

== ENCOUNTER → 2021-03-14 12:54 | Outpatient (BNVA) | payer MEDICARE, OTHER, SELFPAY | PROVIDERS: PCP Internal Medicine; Visit Provider Nurse Practitioner Family | DX: I11.0 Hypertensive heart disease with heart failure (principal); I50.20 Unspecified systolic (congestive) heart failure; I25.10 Atherosclerotic heart disease of native coronary artery without angina pectoris; I25.5 Ischemic cardiomyopathy; E78.5 Hyperlipidemia, unspecified; E11.9 Type 2 diabetes mellitus without complications; Z98.890 Other specified postprocedural states; Z79.899 Other long term (current) drug therapy | CPT/HCPCS: 99212 ==

== ENCOUNTER 2021-03-17 17:29 | Emergency (ER) | payer MEDICARE, OTHER, SELFPAY ==
--- NOTE | ~2021-03-17 | CT_ITS ---
EXAMINATION: CT ABDOMEN AND PELVIS WITHOUT CONTRAST CLINICAL INFORMATION: Diffuse abdominal pain. COMPARISON: No ultrasound dated 06/06/2020. TECHNIQUE: Multidetector volumetric imaging was performed from the superior aspect of the liver through the pubic symphysis. Sagittal and coronal reformatted images were obtained on the technologist's workstation. This CT examination was performed using dose optimization techniques as appropriate, variously including the following: *Automated exposure control *Adjustment of mA and/or kV according to patient size (this includes techniques or standardized protocols for targeted exams where dose is matched to indication/reason for exam; i.e. extremities or head) *Use of iterative reconstruction technique DLP: 529 mGy-cm FINDINGS: LUNG BASES: The visualized lung bases are unremarkable. LIVER, GALLBLADDER, AND BILIARY TREE: The liver is normal in size, shape, and attenuation. No focal hepatic lesion or biliary ductal dilatation is present. Status post cholecystectomy. PANCREAS: Unremarkable. SPLEEN: Unremarkable. ADRENAL GLANDS: Unremarkable. KIDNEYS AND URETERS: The kidneys are normal in size, shape, and attenuation. Bilateral renal calcifications, which are likely vascular. No obstructing renal or ureteral stone. BLADDER: Unremarkable. GASTROINTESTINAL TRACT: Small, sliding hiatal hernia. Severe sigmoid diverticulosis as well as more scattered ascending colon diverticulosis without evidence of acute radiculitis. The transverse and descending colon are nondistended with mild wall prominence, limiting evaluation. No associated inflammatory change. No small or large bowel obstruction. Unremarkable appendix. PERITONEAL CAVITY: No intra-abdominal free air or free fluid. No intra-abdominal mass or organized fluid collection/abscess formation. ABDOMINAL WALL: No significant hernia is appreciated. LYMPH NODES: No significant lymphadenopathy. Mild stranding of the central mesentery. Left mesentery surgical clips. VASCULAR: No abdominal aortic dilatation. Scattered atherosclerotic calcifications. Unremarkable IVC. PELVIC VISCERA: Atrophic uterus. Multiple pelvic phleboliths. OSSEOUS STRUCTURES: Partially visualized right hip ORIF. No concerning lytic or blastic osseous lesion. CT/CT abdomen pelvis wo con IMPRESSION: 1. Small, sliding hiatal hernia. Prominent sigmoid and more mild ascending colonic diverticulosis without evidence of acute diverticulitis. Under distention of the transverse and descending colon, limiting evaluation. No associated inflammatory change. No small or large bowel obstruction. Unremarkable appendix. 2. No intra-abdominal mass, lymphadenopathy, or ascites. 3. Stranding within the central mesentery. No associated lymphadenopathy. Findings may be idiopathic or represent an infectious, inflammatory, or infiltrative process. There are associated surgical clips. If there is clinical concern, repeat imaging in 3-6 months could evaluate for stability.
--- NOTE | ~2021-03-17 | XR_ITS ---
EXAMINATION: XR CHEST CLINICAL INFORMATION: Fatigue. COMPARISON: Most recent chest radiograph dated 03/09/2021. TECHNIQUE: Frontal view of the chest was obtained. FINDINGS: No new airspace consolidation. No pleural effusion or pneumothorax. Stable cardiomediastinal silhouette with sternal wires and mediastinal surgical clips. Chronic deformity of the left humeral head, unchanged. XR/XR chest 1V IMPRESSION: No acute cardiopulmonary findings.
[2021-03-17 17:42] VITALS: BP 166/66; PULSE 84; RESP 18; TEMP 36.9; O2SAT 97; BMI 29.2
[2021-03-17 18:51] LABS: MANUAL DIFF FLAG NO
[2021-03-17 18:56] LABS: Basophils Percent Auto 0.3 % (0-2); Eosinophils Absolute Auto 0.1 X10*3/uL (0.0-0.4); Eosinophils Percent Auto 1.9 % (0-4); Hematocrit 30.2 % (37-47); Imm Gran Abs Auto 0.02 X10*3/uL (0.00-0.03); Imm Gran Pct Auto 0.3 % (0.0-0.4); Lymphocytes Absolute Auto 2.1 X10*3/uL (1.2-4.9); Lymphocytes Percent Auto 34.1 % (20-40); Mean Corpuscular HGB Conc 33.1 g/dl (31.0-35.0); Mean Corpuscular Hemoglobin 32.8 pg (27.0-33.0); Mean Platelet Volume 9.6 fL (9.4-12.3); Monocytes Absolute Auto 0.3 X10*3/uL (0.1-1.2); Monocytes Percent Auto 5.5 % (2-11); Neutrophils Absolute Auto 3.6 X10*3/uL (2.0-8.3); Neutrophils Percent Auto 57.9 % (45-73); Platelet Count 257 X10*3/uL (160-400); Red Blood Count 3.05 X10*6/uL (4.20-5.50); Red Cell Distribution Width 12.5 % (11.0-16.0); White Blood Count 6.2 X10*3/uL (4.8-10.8)
--- NOTE | 2021-03-17 19:24 | ED.GENADULT ---
HPI - General Adult General Chief complaint: General Medical Stated complaint: multiple complaints Source: patient Mode of arrival: ambulatory Limitations: no limitations History of Present Illness HPI narrative: 75-year-old female with past medical history of coronary artery disease, insulin-dependent diabetes, congestive heart failure with reduced ejection fraction, left ventricular hypertrophy, hyperlipidemia, hypertension, ischemic cardiomyopathy, peripheral vascular disease, recently treated for UTI with cefuroxime completed course, presents with fatigue, abdominal pain, and elevated blood sugar. She does report using insulin, Lantus, and had her insulin sliding-scale stopped a while ago but does not know why. She has been using trazodone to sleep, with poor effect. At this time she states to be very tired, feels weak, but does not describe any chest pain or pressure, changes in vision, dizziness, lightheadedness, abdominal distention, nausea, vomiting, diarrhea, constipation, dysuria, hematuria, melena, hematochezia, or edema. She denies falls and trauma, and states that she did use trazodone last night. Onset (ago): day(s) Location: abdomen Radiation: abdomen Severity: moderate Severity scale (1-10): 5 Quality: aching Pain Consistency: constant Relieving factors: none Exacerbating factors: movement Associated symptoms: denies other symptoms Related Data Home Medications Medication Instructions Recorded Confirmed acetaminophen-codeine 1 tab PO Q8H PRN 03/09/21 03/09/21 albuterol sulfate 2 puff INHALATION Q4H PRN 03/09/21 03/09/21 albuterol sulfate [Ventolin HFA] 1 puff INHALATION BEDTIME 03/09/21 03/09/21 ascorbic acid (vitamin C) [Vitamin 1 tab PO QAM 03/09/21 03/09/21 C] aspirin 1 tab PO DAILY 03/09/21 03/09/21 atorvastatin 1 tab PO DAILY 03/09/21 03/09/21 clopidogrel 1 tab PO QAM 03/09/21 03/09/21 cyanocobalamin (vitamin B-12) 1 tab PO QAM 03/09/21 03/09/21 [Vitamin B-12] duloxetine 1 cap PO BID 03/09/21 03/09/21 ferrous sulfate 1 tab PO QAM 03/09/21 03/09/21 folic acid 1 tab PO QAM 03/09/21 03/09/21 furosemide 1 tab PO QAM 03/09/21 03/09/21 gabapentin 1 cap PO TID 03/09/21 03/09/21 hydralazine 25 mg PO BID 03/09/21 03/09/21 insulin detemir U-100 [Levemir 45 unit SUBCUT DAILY 03/09/21 03/09/21 FlexTouch U-100 Insuln] isosorbide mononitrate 1 tab PO DAILY 03/09/21 03/09/21 metoprolol succinate 1 tab PO DAILY 03/09/21 03/09/21 pantoprazole 1 tab PO QAM 03/09/21 03/09/21 quetiapine 1 tab PO BEDTIME 03/09/21 03/09/21 ranolazine 1 tab PO BID 03/09/21 03/09/21 trazodone 1 tab PO BEDTIME 03/09/21 03/09/21 Previous Rx's Medication Instructions Recorded cefuroxime axetil 250 mg PO BID 7 Days #14 tab 03/09/21 Allergies Allergy/AdvReac Type Severity Reaction Status Date / Time naproxen [From ALEVE] Allergy Intermediate SWELLING Verified 03/17/21 13:11 VOMITING acetaminophen [Percocet] Allergy Unknown Unknown Verified 03/17/21 13:11 sacubitril [Entresto] Allergy Unknown Unknown Verified 03/17/21 13:11 valsartan [Entresto] Allergy Unknown Unknown Verified 03/17/21 13:11 oxycodone [From PERCOCET] AdvReac Intermediate VOMITING Verified 03/17/21 13:11 Review of Systems Review of Systems: Constitutional: No Weight loss, No Fever, No Chills, No Night Sweats, positive Fatigue, No Malaise ENT/Mouth: No Hearing loss, No Ear Pain, No Nasal Congestion, No Sinus Pain, No Hoarseness, No sore throat, No Rhinorrhea, No Swallowing Difficulty Eyes: No Eye Pain, No Swelling, No Redness, No Foreign Body, No Discharge, No Vision Changes Cardiovascular: No Chest Pain, No SOB, No Dyspnea on Exertion, No Orthopnea, No Edema, No Palpitations Respiratory: No Cough, No Sputum, No Wheezing, No Smoke Exposure, No Dyspnea Gastrointestinal: No Nausea, no Vomiting, now Diarrhea, positive abdominal Pain, No Hematochezia, No Melena Genitourinary: no irregular bleeding, No Dysuria, No Urinary Frequency, No Hematuria, No Urinary Incontinence, No Urgency, No Flank Pain, No Urinary Flow Changes, No Hesitancy Musculoskeletal: No joint pain, No Myalgias, No Joint Swelling Skin: No Skin Lesions, No rash Neuro: No Weakness, No Numbness, No Paresthesias, No Loss of Consciousness, No Dizziness, No Headache Psych: No Anxiety/Panic, No Depression, No SI/HI/AH/VH, No Social Issues Heme/Lymph: No Bruising, No Bleeding,No Lymphadenopathy Endocrine: No Polyuria, No Polydipsia, No Temperature Intolerance Yes all other systems are reviewed and are negative [facility] Past Medical History Attestation statement: The following information was validated with the patient. Medical History CAD (coronary artery disease) Diabetes mellitus Essential hypertension HFrEF (heart failure with reduced ejection fraction) HLD (hyperlipidemia) Hypertension Ischemic cardiomyopathy PVD (peripheral vascular disease) Surgical History S/P CABG x 3 S/P cardiac cath (~07/2017) Stented coronary artery Family History Family History Mother No problems noted. Father No problems noted. Social History Social History Alcohol intake: never Smoking Status: Never smoker Use of substances other than those prescribed or required for medical reasons: No Advance Directives: No Advance Directives Information Provided: No Current occupational status: disabled Current occupation: Right Handed Physical Exam Vital Signs: Vital Signs: Last Vital Signs Temp 98.8 F 03/17/21 22:00 Pulse 94 03/17/21 22:00 Resp 18 03/17/21 22:00 BP 124/51 L 03/17/21 22:00 Pulse Ox 97 03/17/21 22:00 Body Mass Index 29.2 Appearance: Alert. Oriented X3. Mild distress. Appears fatigued Head: Normal external exam. Normocephalic. Atraumatic. No Chan signs noted. No raccoon eyes noted Eyes: PERRLA. EOMI. Conjunctiva and sclera normal. Eyelids normal. ENT: TM's Normal. Pharynx normal. Uvula midline. Moist mucous membranes. No trismus noted. No drooling noted. No muffled voice noted. Neck: Normal inspection. Neck supple. No adenopathy. Thyroid Normal. No meningeal signs. No neck mass noted. CVS: Normal heart rate and rhythm. Heart sound normal. No murmurs noted. Pulses equal to all extremities. Respiratory: No respiratory distress. Painless inspiration. Breath sounds normal. No wheezes/rales/rhonchi noted. Chest nontender. No accessory muscle usage noted or decreased air movement noted. Abdomen: Soft and diffusely tender to minimal palpation. Bowel sounds normal in all 4 quadrants. No distention noted. No organomegaly noted. No visible injury noted. Back: No CVA tenderness. Full range of motion noted. Skin: Skin warm and dry. Normal skin color. Normal skin turgor. No rashes/lesions/lacerations noted. Extremities: No lower extremity edema. Extremities exhibit normal range of motion. Extremities nontender. Neuro: cranial nerves 2-12 intact, no focal neural deficits, strength 5/5 to all extremities, No motor deficit. No sensory deficit. NIH Stroke Scale Internal: Initial- Upon Arrival Level of Consciousness: Alert Level of Consciousness Questions: Answers both questions correctly Level of Consciousness Commands: Performs both tasks correctly Best Gaze: Normal Visual: No visual loss Facial Palsy: Normal Motor Arm (Right): No drift Motor Arm (Left): No drift Motor Leg (Right): No drift Motor Leg (Left): No drift Limb Ataxia: Absent Sensory: Normal Best Language: No aphasia Dysarthia: Normal Extinction and Inattention: No abnormality Score: 0 Course Course Course Narrative: 75-year-old female with past medical history of coronary artery disease, insulin-dependent diabetes, congestive heart failure with reduced ejection fraction, left ventricular hypertrophy, hyperlipidemia, hypertension, ischemic cardiomyopathy, peripheral vascular disease, recently treated for UTI with cefuroxime completed course, presents with fatigue, abdominal pain, and elevated blood sugar. Lab values were protocol while patient was in the emergency department waiting department, CBC shows an H&H of 10.0/30.2 which has been chronic since before 2019, has an elevated glucose of 437, corrected sodium is 139, will give 10 units of subcu insulin and 1 L of normal saline. Will add CT scan of abdomen and pelvis, urinalysis, and troponins. She has been using trazodone to sleep, with poor effect. She was evaluated on 03/08/2021 for slurred speech, and altered mental status with no findings requiring emergent intervention. It was suspected at that time that trazodone could have been the cause for her altered mental status. Patient was advised to stop using this medication altogether as this may be causing her increased fatigue. First troponin is elevated at 18.9, will repeat 2nd. CT scan of abdomen shows some mesenteric stranding with no significant source of infection. No further action at this time, Dr. Jung also evaluated CT scan, patient's lab values and also agrees with this plan. Second troponin 18.4 no significant elevation. She does have history of CHF, diabetes, and kidney disease which could be the likely reason for her troponin leak. COVID test is negative. Discussion with patient and patient's family regarding need to follow-up with endocrinology, as patient may require insulin sliding scale. Patient and patient's daughter do not know how or why the insulin sliding scale was discontinued. We have referred to endocrinology, patient and patient's family verbalized understanding of and agrees to plan of care discharge home. Medical Decision Making Differential Diagnosis Differential Diagnosis: Hyperglycemia, UTI, medication interaction Medical Records Medical records reviewed: Yes I reviewed the patient's medical records. Lab Data Lab results reviewed: Yes I reviewed the patient's lab results. Result diagrams: 03/17/21 18:44 03/17/21 18:44 Labs: Lab Results 03/17/21 03/17/21 03/17/21 Range/Units 18:44 18:44 18:44 WBC 6.2 (4.8-10.8) X10*3/uL RBC 3.05 L (4.20-5.50) X10*6/uL Hgb 10.0 L (12.0-16.0) g/dl Hct 30.2 L (37-47) % MCV 99.0 H (80-98) fL MCH 32.8 (27.0-33.0) pg MCHC 33.1 (31.0-35.0) g/dl RDW 12.5 (11.0-16.0) % Plt Count 257 (160-400) X10*3/uL MPV 9.6 (9.4-12.3) fL Immature Gran % (Auto) 0.3 (0.0-0.4) % Neut % (Auto) 57.9 (45-73) % Lymph % (Auto) 34.1 (20-40) % Sherman % (Auto) 5.5 (2-11) % Eos % (Auto) 1.9 (0-4) % Baso % (Auto) 0.3 (0-2) % Lymph # (Auto) 2.1 (1.2-4.9) X10*3/uL Sherman # (Auto) 0.3 (0.1-1.2) X10*3/uL Eos # (Auto) 0.1 (0.0-0.4) X10*3/uL Baso # (Auto) 0.0 (0.0-0.2) X10*3/uL Abs Immat Gran (auto) 0.02 (0.00-0.03) X10*3/uL Absolute Neuts (auto) 3.6 (2.0-8.3) X10*3/uL Absolute Nucleated RBC 0.000 (0.0-0.012) X10*3/uL Nucleated RBC % (auto) 0.0 (0.0-0.2) /100WBC Hold Blue Top SEE NOTE Sodium 134 L (135-145) mmol/L Potassium 4.7 (3.3-5.1) mmol/L Chloride 101 (96-108) mmol/L Carbon Dioxide 23 (22-29) mmol/L Anion Gap 15 (12-20) BUN 15 (9-16) mg/dL Creatinine 1.34 (0.5-1.4) mg/dL Estim Creat Clear Calc 33.0 Estimated GFR 38 POC Glucose (60-115) mg/dL Random Glucose 437 H* (60-115) mg/dL Calcium 9.0 (8.4-10.2) mg/dL Total Bilirubin 0.5 (0.0-1.0) mg/dL Direct Bilirubin < 0.2 (0.0-0.5) mg/dL AST 11 (5-31) U/L ALT 19 (0-31) U/L Alkaline Phosphatase 92 (39-117) U/L Troponin I High Sens (<3.5-17.0) ng/L Total Protein 6.4 L (6.5-8.0) g/dL Albumin 3.6 (3.5-5.0) g/dL Lipase 103 H (8-78) U/L Urine Color Urine Appearance Urine pH (5.0-8.0) Ur Specific [place] (1.005-1.025) Urine Protein (NEG-TRACE) MG/DL Urine Glucose (UA) (NEG) MG/DL Urine Ketones (NEG) MG/DL Urine Blood (NEG) Urine Nitrite (NEG) Ur Leukocyte Esterase (NEG) Urine RBC (0) /HPF Urine WBC (0-4) /HPF Ur Squamous Epith Cells /LPF Urine Bacteria /LPF Coronavirus (PCR) (Negative) Influenza Type A (PCR) (Negative) Influenza Type B (PCR) (Negative) RSV RNA Qual (PCR) (Negative) 03/17/21 03/17/21 03/17/21 Range/Units 18:44 20:04 21:48 WBC (4.8-10.8) X10*3/uL RBC (4.20-5.50) X10*6/uL Hgb (12.0-16.0) g/dl Hct (37-47) % MCV (80-98) fL MCH (27.0-33.0) pg MCHC (31.0-35.0) g/dl RDW (11.0-16.0) % Plt Count (160-400) X10*3/uL MPV (9.4-12.3) fL Immature Gran % (Auto) (0.0-0.4) % Neut % (Auto) (45-73) % Lymph % (Auto) (20-40) % Sherman % (Auto) (2-11) % Eos % (Auto) (0-4) % Baso % (Auto) (0-2) % Lymph # (Auto) (1.2-4.9) X10*3/uL Sherman # (Auto) (0.1-1.2) X10*3/uL Eos # (Auto) (0.0-0.4) X10*3/uL Baso # (Auto) (0.0-0.2) X10*3/uL Abs Immat Gran (auto) (0.00-0.03) X10*3/uL Absolute Neuts (auto) (2.0-8.3) X10*3/uL Absolute Nucleated RBC (0.0-0.012) X10*3/uL Nucleated RBC % (auto) (0.0-0.2) /100WBC Hold Blue Top Sodium (135-145) mmol/L Potassium (3.3-5.1) mmol/L Chloride (96-108) mmol/L Carbon Dioxide (22-29) mmol/L Anion Gap (12-20) BUN (9-16) mg/dL Creatinine (0.5-1.4) mg/dL Estim Creat Clear Calc Estimated GFR POC Glucose 227 H (60-115) mg/dL Random Glucose (60-115) mg/dL Calcium (8.4-10.2) mg/dL Total Bilirubin (0.0-1.0) mg/dL Direct Bilirubin (0.0-0.5) mg/dL AST (5-31) U/L ALT (0-31) U/L Alkaline Phosphatase (39-117) U/L Troponin I High Sens 18.9 H D (<3.5-17.0) ng/L Total Protein (6.5-8.0) g/dL Albumin (3.5-5.0) g/dL Lipase (8-78) U/L Urine Color Urine Appearance Urine pH (5.0-8.0) Ur Specific [place] (1.005-1.025) Urine Protein (NEG-TRACE) MG/DL Urine Glucose (UA) (NEG) MG/DL Urine Ketones (NEG) MG/DL Urine Blood (NEG) Urine Nitrite (NEG) Ur Leukocyte Esterase (NEG) Urine RBC (0) /HPF Urine WBC (0-4) /HPF Ur Squamous Epith Cells /LPF Urine Bacteria /LPF Coronavirus (PCR) NEGATIVE (Negative) Influenza Type A (PCR) NEGATIVE (Negative) Influenza Type B (PCR) NEGATIVE (Negative) RSV RNA Qual (PCR) NEGATIVE (Negative) 03/17/21 03/17/21 Range/Units 22:05 22:05 WBC (4.8-10.8) X10*3/uL RBC (4.20-5.50) X10*6/uL Hgb (12.0-16.0) g/dl Hct (37-47) % MCV (80-98) fL MCH (27.0-33.0) pg MCHC (31.0-35.0) g/dl RDW (11.0-16.0) % Plt Count (160-400) X10*3/uL MPV (9.4-12.3) fL Immature Gran % (Auto) (0.0-0.4) % Neut % (Auto) (45-73) % Lymph % (Auto) (20-40) % Sherman % (Auto) (2-11) % Eos % (Auto) (0-4) % Baso % (Auto) (0-2) % Lymph # (Auto) (1.2-4.9) X10*3/uL Sherman # (Auto) (0.1-1.2) X10*3/uL Eos # (Auto) (0.0-0.4) X10*3/uL Baso # (Auto) (0.0-0.2) X10*3/uL Abs Immat Gran (auto) (0.00-0.03) X10*3/uL Absolute Neuts (auto) (2.0-8.3) X10*3/uL Absolute Nucleated RBC (0.0-0.012) X10*3/uL Nucleated RBC % (auto) (0.0-0.2) /100WBC Hold Blue Top Sodium (135-145) mmol/L Potassium (3.3-5.1) mmol/L Chloride (96-108) mmol/L Carbon Dioxide (22-29) mmol/L Anion Gap (12-20) BUN (9-16) mg/dL Creatinine (0.5-1.4) mg/dL Estim Creat Clear Calc Estimated GFR POC Glucose (60-115) mg/dL Random Glucose (60-115) mg/dL Calcium (8.4-10.2) mg/dL Total Bilirubin (0.0-1.0) mg/dL Direct Bilirubin (0.0-0.5) mg/dL AST (5-31) U/L ALT (0-31) U/L Alkaline Phosphatase (39-117) U/L Troponin I High Sens 18.4 H (<3.5-17.0) ng/L Total Protein (6.5-8.0) g/dL Albumin (3.5-5.0) g/dL Lipase (8-78) U/L Urine Color YELLOW Urine Appearance CLEAR Urine pH 6.5 (5.0-8.0) Ur Specific [place] 1.015 (1.005-1.025) Urine Protein NEG (NEG-TRACE) MG/DL Urine Glucose (UA) >=1000 H (NEG) MG/DL Urine Ketones NEG (NEG) MG/DL Urine Blood TRACE (NEG) Urine Nitrite NEG (NEG) Ur Leukocyte Esterase NEG (NEG) Urine RBC 1-4 (0) /HPF Urine WBC 1-4 (0-4) /HPF Ur Squamous Epith Cells 1+ /LPF Urine Bacteria 1+ /LPF Coronavirus (PCR) (Negative) Influenza Type A (PCR) (Negative) Influenza Type B (PCR) (Negative) RSV RNA Qual (PCR) (Negative) Imaging Data Chest x-ray: Attestation: I personally reviewed and interpreted this imaging study as follows: Radiologist's impression: EXAMINATION: XR CHEST CLINICAL INFORMATION: Fatigue. COMPARISON: Most recent chest radiograph dated 03/09/2021. TECHNIQUE: Frontal view of the chest was obtained. FINDINGS: No new airspace consolidation. No pleural effusion or pneumothorax. Stable cardiomediastinal silhouette with sternal wires and mediastinal surgical clips. Chronic deformity of the left humeral head, unchanged. XR/XR chest 1V IMPRESSION: No acute cardiopulmonary findings. CT scan - abdomen: Attestation: I personally reviewed and interpreted this imaging study as follows: Radiologist's impression: EXAMINATION: CT ABDOMEN AND PELVIS WITHOUT CONTRAST CLINICAL INFORMATION: Diffuse abdominal pain. COMPARISON: No ultrasound dated 06/06/2020. TECHNIQUE: Multidetector volumetric imaging was performed from the superior aspect of the liver through the pubic symphysis. Sagittal and coronal reformatted images were obtained on the technologist's workstation. This CT examination was performed using dose optimization techniques as appropriate, variously including the following: *Automated exposure control *Adjustment of mA and/or kV according to patient size (this includes techniques or standardized protocols for targeted exams where dose is matched to indication/reason for exam; i.e. extremities or head) *Use of iterative reconstruction technique DLP: 529 mGy-cm FINDINGS: LUNG BASES: The visualized lung bases are unremarkable. LIVER, GALLBLADDER, AND BILIARY TREE: The liver is normal in size, shape, and attenuation. No focal hepatic lesion or biliary ductal dilatation is present. Status post cholecystectomy. PANCREAS: Unremarkable. SPLEEN: Unremarkable. ADRENAL GLANDS: Unremarkable. KIDNEYS AND URETERS: The kidneys are normal in size, shape, and attenuation. Bilateral renal calcifications, which are likely vascular. No obstructing renal or ureteral stone. BLADDER: Unremarkable. GASTROINTESTINAL TRACT: Small, sliding hiatal hernia. Severe sigmoid diverticulosis as well as more scattered ascending colon diverticulosis without evidence of acute radiculitis. The transverse and descending colon are nondistended with mild wall prominence, limiting evaluation. No associated inflammatory change. No small or large bowel obstruction. Unremarkable appendix. PERITONEAL CAVITY: No intra-abdominal free air or free fluid. No intra-abdominal mass or organized fluid collection/abscess formation. ABDOMINAL WALL: No significant hernia is appreciated. LYMPH NODES: No significant lymphadenopathy. Mild stranding of the central mesentery. Left mesentery surgical clips. VASCULAR: No abdominal aortic dilatation. Scattered atherosclerotic calcifications. Unremarkable IVC. PELVIC VISCERA: Atrophic uterus. Multiple pelvic phleboliths. OSSEOUS STRUCTURES: Partially visualized right hip ORIF. No concerning lytic or blastic osseous lesion. CT/CT abdomen pelvis wo con IMPRESSION: 1. Small, sliding hiatal hernia. Prominent sigmoid and more mild ascending colonic diverticulosis without evidence of acute diverticulitis. Under distention of the transverse and descending colon, limiting evaluation. No associated inflammatory change. No small or large bowel obstruction. Unremarkable appendix. 2. No intra-abdominal mass, lymphadenopathy, or ascites. 3. Stranding within the central mesentery. No associated lymphadenopathy. Findings may be idiopathic or represent an infectious, inflammatory, or infiltrative process. There are associated surgical clips. If there is clinical concern, repeat imaging in 3-6 months could evaluate for stability. ECG Data Attestation: I personally reviewed and interpreted this ECG as follows: Interpretation: Vent. rate 81 BPM NC interval 132 ms QRS duration 100 ms QT/QTc 386/448 ms P-R-T axes 59 -24 120 Normal sinus rhythm Left ventricular hypertrophy with repolarization abnormality Inferior-posterior infarct (cited on or before 20-JUL-2018) Abnormal ECG When compared with ECG of 08-MAR-2021 22:36, Questionable change in initial forces of Posterior leads ST now depressed in Anterior leads T wave inversion now evident in Anterior leads EKG also compared to June 10, 2020 with no significant changes. Discharge Plan Discharge Clinical Impression: Diabetes mellitus Qualifiers: Diabetes mellitus type: type 2 Diabetes mellitus keno terminal operator insulin use: with keno terminal operator use Diabetes mellitus complication status: with neurologic complications Diabetes mellitus complication detail: with unspecified neuropathy Qualified Code(s): E11.40 - Type 2 diabetes mellitus with diabetic neuropathy, unspecified Patient Disposition: Home, Self-Care Instructions: Type 2 Diabetes in the Older Adult (ED) Additional Instructions: You were evaluated for multiple complaints. Her blood sugar was elevated at 437. We did give you 10 units of regular insulin subcutaneously. You may need to have your sliding scale insulin restarted. Please follow-up with endocrinology. We did a CT scan of the abdomen which showed some mild inflammation that does not require any intervention or antibiotics. Your urinalysis is negative. Your EKG did not show any changes from your EKG on March 08. It shows a normal sinus rhythm with LVH. Your cardiac enzymes are mildly elevated, which is normal for a person with CHF, kidney disease and diabetes. Please stop taking the trazodone. Please consider taking melatonin, start with 3 mg. Thank you for choosing this emergency department for evaluation. Please follow-up with primary care physician as needed. Return to the emergency department for any new, concerning, or worsening symptoms. Prescriptions: No Action atorvastatin 80 mg tablet 1 tab PO DAILY RF: 0 acetaminophen-codeine 300-30 mg tablet 1 tab PO Q8H PRN (Reason: pain) RF: 0 clopidogrel 75 mg tablet 1 tab PO QAM RF: 0 aspirin 81 mg tablet,delayed release (DR/EC) 1 tab PO DAILY RF: 0 albuterol sulfate 90 mcg/actuation HFA aerosol inhaler 2 puff inhalation Q4H PRN (Reason: Dyspnea) RF: 0 metoprolol succinate 50 mg tablet extended release 24 hr 1 tab PO DAILY RF: 0 hydralazine 25 mg tablet 25 mg PO BID RF: 0 cyanocobalamin (vitamin B-12) [Vitamin B-12] 250 mcg tablet 1 tab PO QAM RF: 0 quetiapine 100 mg tablet 1 tab PO BEDTIME RF: 0 isosorbide mononitrate 120 mg tablet extended release 24 hr 1 tab PO DAILY RF: 0 ascorbic acid (vitamin C) [Vitamin C] 500 mg tablet 1 tab PO QAM RF: 0 pantoprazole 40 mg tablet,delayed release (DR/EC) 1 tab PO QAM RF: 0 trazodone 150 mg tablet 1 tab PO BEDTIME RF: 0 ferrous sulfate 325 mg (65 mg iron) tablet 1 tab PO QAM RF: 0 folic acid 1 mg tablet 1 tab PO QAM RF: 0 furosemide 20 mg tablet 1 tab PO QAM RF: 0 gabapentin 100 mg capsule 1 cap PO TID RF: 0 albuterol sulfate [Ventolin HFA] 90 mcg/actuation HFA aerosol inhaler 1 puff inhalation BEDTIME RF: 0 duloxetine 20 mg capsule,delayed release(DR/EC) 1 cap PO BID RF: 0 ranolazine 500 mg tablet extended release 12 hr 1 tab PO BID RF: 0 Levemir FlexTouch U-100 Insuln 100 unit/mL (3 mL) insulin pen 45 unit subcut DAILY RF: 0 cefuroxime axetil 250 mg tablet 250 mg PO BID 7 Days Qty: 14 RF: 0 Referrals: Igor Laura MD [Physician] - 2 days (Uncontrolled type 2 diabetes)
[2021-03-17 19:26] LABS: Anion Gap 15 (12-20); Blood Urea Nitrogen 15 mg/dL (9-16); Carbon Dioxide 23 mmol/L (22-29); Chloride 101 mmol/L (96-108); Estimated Glomerular Filt Rate 38; Glucose Random 437 mg/dL (60-115); Potassium 4.7 mmol/L (3.3-5.1); Sodium 134 mmol/L (135-145)
--- NOTE | 2021-03-17 19:27 | ECG_ITS ---
Test Reason : ABD PAIN Blood Pressure : / mmHG Vent. 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
[2021-03-17 19:49] VITALS: BP 142/49; PULSE 85; RESP 14; O2SAT 97
[2021-03-17 19:53] LABS: Alanine Aminotransferase 19 U/L (0-31); Albumin Level 3.6 g/dL (3.5-5.0); Alkaline Phosphatase 92 U/L (39-117); Aspartate Amino Transferase 11 U/L (5-31); Bilirubin Direct < 0.2 mg/dL (0.0-0.5); Bilirubin Total 0.5 mg/dL (0.0-1.0); Total Protein 6.4 g/dL (6.5-8.0)
[2021-03-17 20:00] VITALS: BP 146/63; PULSE 81; RESP 18; O2SAT 99
[2021-03-17 20:09] LABS: Lipase 103 U/L (8-78)
[2021-03-17] MEDS: Insulin Regular, Human 100 UNIT/ML 3 ML VIAL 10 UNIT SUBCUT (20:17)
[2021-03-17] MEDS: 0.9 % Sodium Chloride 1,000 ML 999 ML IVCONT (20:17)
[2021-03-17 20:48] LABS: Troponin-I High Sensitivity 18.9 ng/L (<3.5-17.0)
[2021-03-17 20:53] LABS: Influenza A PCR NEGATIVE (Negative); Influenza B PCR NEGATIVE (Negative); Resp Syncy Virus RNA Qual PCR NEGATIVE (Negative); SARS COV2 PCR INHOUSE NEGATIVE (Negative)
[2021-03-17 21:52] LABS: Glucose, Whole Blood 227 mg/dL (60-115)
[2021-03-17 22:00] VITALS: BP 124/51; PULSE 94; RESP 18; TEMP 37.1; O2SAT 97
[2021-03-17 22:13] LABS: Glucose Urine UA >=1000 MG/DL (NEG); Leukocyte Esterase Urine NEG (NEG); Nitrite Urine NEG (NEG); PH 6.5 (5.0-8.0); Specific Gravity - Urine 1.015 (1.005-1.025); Urine Blood TRACE (NEG); Urine Ketones NEG (NEG); Urine Protein NEG (NEG-TRACE)
[2021-03-17 22:20] LABS: Appearance Urine CLEAR; Color Urine YELLOW
[2021-03-17 22:21] LABS: Bacteria Urine 1+ /LPF; Squamous Epithelial Cell Urine 1+ /LPF
[2021-03-17 22:44] LABS: Troponin-I High Sensitivity 18.4 ng/L (<3.5-17.0)
--- NOTE | 2021-03-17 23:01 | PC.NURSE ---
slept for a while. now sitting up having soup and reports an appetite for first time in 4 days. will f/u with pcp
[2021-03-18] VITALS: BP 120/62; PULSE 88; RESP 18; TEMP 36.9; O2SAT 98
== END 2021-03-18 00:10 | disposition home or self-care (01) ==
PROVIDERS: Nurse Practitioner Family; Emergency Provider Emergency Medicine; PCP Internal Medicine
DX: E11.40 Type 2 diabetes mellitus with diabetic neuropathy, unspecified (principal); I25.10 Atherosclerotic heart disease of native coronary artery without angina pectoris; I10 Essential (primary) hypertension; Z79.4 Long term (current) use of insulin; Z79.899 Other long term (current) drug therapy; Z20.822 Contact with and (suspected) exposure to COVID-19
CPT/HCPCS: 0241U; 36415; 71045; 74176; 80048; 80076; 81001; 82947; 83690; 84484; 85025; 93005; 96360; 96372; 99285

== ENCOUNTER → 2021-04-05 09:58 | Outpatient (BNVA) | payer MEDICARE, MEDICAID, OTHER, SELFPAY | PROVIDERS: PCP Internal Medicine; Referring Provider Internal Medicine; Visit Provider Internal Medicine Cardiovascular Disease | DX: I25.5 Ischemic cardiomyopathy (principal); I50.20 Unspecified systolic (congestive) heart failure; I25.10 Atherosclerotic heart disease of native coronary artery without angina pectoris; I11.0 Hypertensive heart disease with heart failure; E11.9 Type 2 diabetes mellitus without complications; E78.5 Hyperlipidemia, unspecified; M25.551 Pain in right hip; Z88.8 Allergy status to other drugs, medicaments and biological substances; Z95.1 Presence of aortocoronary bypass graft; Z95.5 Presence of coronary angioplasty implant and graft; Z79.899 Other long term (current) drug therapy | CPT/HCPCS: 99212 ==

== ENCOUNTER 2021-06-06 13:32 | Outpatient (REF) | payer MEDICARE, OTHER, SELFPAY ==
--- NOTE | ~2021-06-06 | US_ITS ---
EXAMINATION: NONINVASIVE ASSESSMENT OF THE ARTERIES OF BOTH LOWER EXTREMITIES Lamont Gomez MD CLINICAL INFORMATION: Right SFA stent TECHNIQUE: Bilateral lower extremity duplex ultrasound was performed with velocity measurements and waveform analysis in the common femoral arteries, profunda femoris arteries, proximal mid and distal superficial femoral arteries, popliteal arteries and tibial vessels. This study was performed only at rest. COMPARISON: None FINDINGS: Velocities in cm/sec and phasicity as well as the presence of plaque are reported below. RIGHT LEG: Minimal plaque is present. Triphasic flow noted in the common femoral artery with multiphasic flow throughout the remainder of the right lower extremity Common Femoral: 106 Profunda Femoris: 85 Proximal SFA: 113 Mid SFA: 107 Distal SFA: 96 Popliteal: 127 Posterior tibial: 25 A right-sided SFA stent is widely patent. LEFT LEG: Plaque is present, especially in the mid SFA where a stenosis is present with velocity acceleration. Triphasic flow noted in the common femoral artery with multiphasic flow noted throughout the remainder of the lower extremity. Common Femoral: 84 Profunda Femoris: 61 Proximal SFA: 93 Mid SFA: 140 Distal SFA: 85 Popliteal: 59 Posterior tibial: 30 US/US arterial duplex LE BI IMPRESSION: Right-sided SFA stent is present and widely patent. A left mid SFA stenosis is present with elevated velocities. Multiphasic flow, however, remains distal to the stent.
--- NOTE | ~2021-06-06 | US_ITS ---
EXAMINATION: NONINVASIVE ASSESSMENT OF THE ARTERIES OF BOTH LOWER EXTREMITIES Lamont Gomez MD CLINICAL INFORMATION: Right SFA stent TECHNIQUE: Bilateral lower extremity duplex ultrasound was performed with velocity measurements and waveform analysis in the common femoral arteries, profunda femoris arteries, proximal mid and distal superficial femoral arteries, popliteal arteries and tibial vessels. This study was performed only at rest. COMPARISON: None FINDINGS: Velocities in cm/sec and phasicity as well as the presence of plaque are reported below. RIGHT LEG: Minimal plaque is present. Triphasic flow noted in the common femoral artery with multiphasic flow throughout the remainder of the right lower extremity Common Femoral: 106 Profunda Femoris: 85 Proximal SFA: 113 Mid SFA: 107 Distal SFA: 96 Popliteal: 127 Posterior tibial: 25 A right-sided SFA stent is widely patent. LEFT LEG: Plaque is present, especially in the mid SFA where a stenosis is present with velocity acceleration. Triphasic flow noted in the common femoral artery with multiphasic flow noted throughout the remainder of the lower extremity. Common Femoral: 84 Profunda Femoris: 61 Proximal SFA: 93 Mid SFA: 140 Distal SFA: 85 Popliteal: 59 Posterior tibial: 30 US/US CYNTHIA complete IMPRESSION: Right-sided SFA stent is present and widely patent. A left mid SFA stenosis is present with elevated velocities. Multiphasic flow, however, remains distal to the stent.
== END 2021-06-06 13:33 | disposition home or self-care (01) ==
LOC: HO.US 13:32
PROVIDERS: Visit Provider Surgery Vascular Surgery
DX: I70.213 Atherosclerosis of native arteries of extremities with intermittent claudication, bilateral legs (principal)
CPT/HCPCS: 93923; 93925

== ENCOUNTER → 2021-06-07 11:45 | Outpatient (BNVA) | payer MEDICARE, OTHER, SELFPAY | PROVIDERS: PCP Internal Medicine; Visit Provider Surgery Vascular Surgery | DX: I73.9 Peripheral vascular disease, unspecified (principal) | CPT/HCPCS: 99212 ==

== ENCOUNTER → 2021-06-18 13:25 | Outpatient (BNVA) | payer MEDICARE, OTHER, SELFPAY | PROVIDERS: PCP Internal Medicine; Referring Provider Internal Medicine; Visit Provider Internal Medicine Cardiovascular Disease | DX: I25.5 Ischemic cardiomyopathy (principal); I25.10 Atherosclerotic heart disease of native coronary artery without angina pectoris; I50.20 Unspecified systolic (congestive) heart failure; Z79.899 Other long term (current) drug therapy | CPT/HCPCS: 99212 ==